=== PATIENT | female | born 1980 | race Caucasian/White ===

== ENCOUNTER 2017-10-12 17:56 | Emergency (ER) | payer OTHER ==
[~2017-10-12] VITALS: Ht 157.5 cm; Wt 81.8 kg
[2017-10-12] MEDS ORDERED: HYDROcodone/acetaminophen 10/325mg tab PO STA (18:32)
[2017-10-12] MEDS ORDERED: NAPR-56 PO (20:00)
[2017-10-12] MEDS ORDERED: naproxen 500mg tablet PO ONE (20:10)
[2017-10-12 20:36] VITALS: BP 183/111
== END 2017-10-12 20:39 | disposition home or self-care (01) ==
LOC: ER 17:57
DX: S93.401A Sprain of unspecified ligament of right ankle, initial encounter (principal); F17.200 Nicotine dependence, unspecified, uncomplicated; Z98.890 Other specified postprocedural states; Z98.51 Tubal ligation status; Z88.0 Allergy status to penicillin; Z88.2 Allergy status to sulfonamides; Z88.1 Allergy status to other antibiotic agents; Z88.5 Allergy status to narcotic agent; Z88.6 Allergy status to analgesic agent; X50.1XXA Overexertion from prolonged static or awkward postures, initial encounter; Y93.01 Activity, walking, marching and hiking; Y92.89 Other specified places as the place of occurrence of the external cause; Y99.9 Unspecified external cause status
CPT/HCPCS: 73610; 99284; A6449; 29515

== ENCOUNTER 2020-03-15 14:38 | Emergency (ER) | payer MEDICAID ==
[~2020-03-15] VITALS: Ht 162.6 cm; Wt 90.0 kg
[2020-03-15] MEDS ORDERED: TETanus/Pertussis (Acell)/Diphther VAC/PF (Tdap-Adult) 0.5ml syringe IMVAC ONE (17:20)
[2020-03-15] MEDS ORDERED: LIDOcaine 1% W/epiNEPHrine 1:200,000 10ml vial IJ ONE (17:20)
[2020-03-15] MEDS ORDERED: HYDROcodone/acetaminophen 5mg/325mg tablet PO ONE (17:20)
[2020-03-15] MEDS ORDERED: ibuprofen tablet 400 MG TABLET PO ONE (17:20)
[2020-03-15] MEDS ORDERED: HYDR-3965 PO (18:05)
[2020-03-15] MEDS ORDERED: DOXY100C2 PO (18:05)
[2020-03-15 18:40] VITALS: BP 138/72
== END 2020-03-15 18:42 | disposition home or self-care (01) ==
LOC: ER 14:38
DX: S61.431A Puncture wound without foreign body of right hand, initial encounter (principal); Z98.890 Other specified postprocedural states; Z98.51 Tubal ligation status; Z88.0 Allergy status to penicillin; Z88.2 Allergy status to sulfonamides; Z88.5 Allergy status to narcotic agent; Z88.8 Allergy status to other drugs, medicaments and biological substances; Z79.899 Other long term (current) drug therapy; W54.0XXA Bitten by dog, initial encounter; Y93.89 Activity, other specified; Y92.89 Other specified places as the place of occurrence of the external cause; Y99.8 Other external cause status
CPT/HCPCS: 64450; 73110; 90471; 90715; 99284